=== PATIENT | female | born 1950 | race Caucasian/White ===

== ENCOUNTER 2024-12-22 15:14 | Outpatient (AMB) | payer MEDICARE, SELFPAY ==
--- OUTSIDE RECORDS SUMMARY | 2011-08-21 20:00 | XMS_ITS | Continuity of Care Document ---
Author Organization [facility] Address [address] [place] [address] Phone Care Team Providers Care Store Receiver Name Role Phone Elva Crooks MD Unavailable Unavailable Advance Directives Directive Yes / No Effective Date File Name No Information Encounters Encounter Description Practice Location Reason(s) For Visit Diagnoses Date Provider Providers Copied on Encounter [facility], [address], [place], [place], [id number], [place] tel:[phone] [facility] JOINT PAIN-SHLDER Valeriy Stevenson. [address], [place], [place], [id number], [place]. tel:[phone] Family History Family Member Type Diagnosis Age At Onset No Information Payers Payer name Insurance type Covered green party ID Authoriza tion(s) No Information Social History Type Description Quantity Date Captured Comments Sex Female Smoking Status No Information Chief Complaint And Reason For Visit No Information Reason For Referral Reason For Referral No Information History Of Present Illness Encounter Date Complaint History Of Prese nt Illness No Information Functional Status Date Functional Assessmen t No Information Instructions Date Instruction Additional Infor mation No Information Assessments Type Assessment Date No Information Patient Care Teams Name Effective Dates (start - stop) Status Members No Information
--- OUTSIDE RECORDS SUMMARY | 2024-05-12 09:45 | XMS_ITS | Continuity of Care Document ---
Author Organization [facility] Address [address] [place] [address] Phone Care Team Providers Care Health Program Manager Name Role Phone Chad Hoskins MD Unavailable [...] for the evaluation and management of an [facility], [address] [place] [address], [id number], tel:[phone] Justice VICTOR Joint Pain (chief complaint) Primary OA of handPain in unspecified jointSpinal enthesopathy, lumbar regionOther spondylosis, lumbar regionOther intervertebral disc disorders, lumbar regionSciatica, left side Feb-0 - 5 Ritter Bonilla. [address] [place] [address], [address], [id number] . tel: [phone] Referring Provider: Chad Khan, [address] [place] [address], [place], [address] . tel:[phone] Office or other outpatient visit for the evaluation and management of an [facility], [address] [place] [address], [id number], tel:[phone] Justice VICTOR Joint Pain (chief complaint) Primary OA of handPain in unspecified jointSpinal enthesopathy, lumbar regionOther spondylosis, lumbar regionOther intervertebral disc disorders, lumbar regionSciatica, left side Sep-1 3- 4 Ritter Bonilla. [address] [place] [address], [address], [id number] . tel: [phone] Referring Provider: Chad Khan, [address] [place] [address], [address] . tel:[phone] [facility], [address] [place] [address], [id number], tel:[phone] Justice VICTOR Joint Pain (chief complaint) Primary OA of handOther spondylosis, lumbar regionOther intervertebral disc disorders, lumbar regionOther spondylosis, cervical regionSpinal stenosis, cervical region Sep-0 4 4 Ritter Bonilla. [address] [place] [address], [address], [id number] . tel: [phone] [facility], [address] [place] [address], [id number], [place] tel:[phone] Justice VICTOR No Information Sep-0 4 Ritter Bonilla. [address] [place] [address], [id number] . tel: [phone] Referring Provider: Chad Khan, [address] [place] [address], [id number] . tel:[phone] Office or other outpatient visit for the evaluation and management of an [facility], [address] [place] [address], [id number], [place] tel:[phone] Justice VICTOR Joint Pain (chief complaint) Primary OA of handPain in unspecified jointSpinal enthesopathy, lumbar regionOther spondylosis, lumbar regionOther intervertebral disc disorders, lumbar regionSciatica, left sideLow back pain Feb-0 6202 3 Ritter Bonilla. [address] [place] [address], [id number] . tel: [phone] Referring Provider: Chad Khan, [address] [place] [address], [id number] . tel:[phone] Office or other outpatient visit for the evaluation and management of an [facility], [address] [place] [address], [id number], [place] tel:[phone] Justice VICTOR Joint Pain (chief complaint) Pain in unspecified jointPrimary OA of handSpinal enthesopathy, lumbar regionOther spondylosis, lumbar regionOther intervertebral disc disorders, lumbar regionSciatica, left sideLow back pain 2 Ritter Bonilla. [address] [place] [address], [address], [id number] . tel: [phone] Referring Provider: Chad Khan, [address] [place] [address], [address] . tel:[phone] [facility], [address] [place] [address], [id number], tel:[phone] Justice VICTOR No Information 2 Ritter Bonilla. [address] [place] [address], [address], [id number] . tel: [phone] Referring Provider: Chad Khan, [address] [place] [address], [id number] . tel:[phone] Office or other outpatient visit for the evaluation [facility] management [facility], [address] [place] [address], [id number], [place] tel:[phone] Justice VICTOR Joint Pain (chief complaint) Primary OA of handSpinal enthesopathy, lumbar regionOther spondylosis, lumbar regionOther intervertebral disc disorders, lumbar regionSciatica, left sideLow back painPain in unspecified joint 2 Ritter Bonilla. [address] [place] [address], [address], [id number] . tel: [phone] Referring Provider: Chad Khan, [address] [place] [address], [address] . tel:[phone] Office or other outpatient visit for the evaluation and management of an [facility], [address] [place] [address], [id number], [place] tel:[phone] Justice VICTOR Joint Pain (chief complaint) Spinal enthesopathy, lumbar regionOther spondylosis, lumbar regionOther intervertebral disc disorders, lumbar regionSciatica, left sidePrimary OA of handLow back pain 1 Ritter Bonilla. [address] [place] [address], [address], [id number] . tel: [phone] Referring Provider: Chad Khan, [address] [place] [address], [id number] . tel:[phone] Office or other outpatient visit [facility] the [facility], [address] [place] [address], [id number], tel:[phone] Justice VICTOR Joint Pain (chief complaint) Spinal stenosis, cervical regionRadiculopath y, cervical regionOther spondylosis, cervical regionOther spondylosis, lumbar region 1 Ritter Bonilla. [address] [place] [address], [id number] . tel: [phone] Referring Provider: Chad Khan, [address] [place] [address], [id number] . tel:[phone] [facility], [address] [place] [address], [id number], [place] tel:[phone] Justice VICTOR Joint Pain (chief complaint) Spinal stenosis, cervical regionRadiculopath y, cervical regionOther spondylosis, cervical regionOther spondylosis, lumbar region 1 Ritter Bonilla. [address] [place] [address], [address], [id number] . tel: [phone] [facility], [address] [place] [address], [id number], [place] tel:[phone] Justice VICTOR No Information 1 Ritter Bonilla. [address] [place] [address] Ave, [address] [place] [address], [id number] . tel: [phone] Referring Provider: Chad Khan, [address] [place] [address] Ave Suite [facility], [place], [address] . tel:[phone] Office or other outpatient visit for the evaluation [facility], [address] [place] [address] [facility] [address] [place] [address], [id number], [place] tel:[phone] Justice VICTOR Back pain (chief complaint) Other spondylosis, lumbar regionSpinal stenosis, cervical regionOther spondylosis, cervical region Dec-3 0 Ritter Bonilla. [address] [place] [address] Ave, [address] [place] [address], [id number] . tel: [phone] Referring Provider: Chad Khan, [address] [place] [address] Suite [facility], [place], [address] . tel:[phone] [facility], [address] [place], [place] [address]e [address] [place] [address], [id number], [place] tel:[phone] Justice VICTOR cervical stenosis (chief complaint) Spinal stenosis, cervical region 0 Ritter Bonilla. [address] [place] [address] Ave, [address] [place] [address], [id number] . tel: [phone] [facility], [address] [place], [place] [address]e [address] [place] [address], [id number], [place] tel:[phone] Justice VICTOR Left upper back and extremity pain. (chief complaint) Other spondylosis, cervical regionSpinal stenosis of cervical regionRadiculopath y, cervical region Feb- 0 Gilmar Cota. [address] [place] [address], [address], [place]. tel: [phone] Referring Provider: Cipriano Schafer, [address] [place] [address], [address]. tel:[phone] [facility], [address] [place] [address], [id number], tel:[phone] Justice VICTOR Left upper back and extremity pain. (chief complaint) Spinal stenosis of cervical regionRadiculopath y, cervical regionOther spondylosis, cervical region Oct-3 0 0 Ritter Bonilla. [address] [place] [address], [address] [place] [address], [id number] . tel: [phone] [facility], [address] [place] [address], [id number], [place] tel:[phone] Justice VICTOR Pain in unspecified joint 0 Ritter Bonilla. [address] [place] [address], [address], [id number] . tel: [phone] Referring Provider: Chad Khan, [address] [place] [address], [address] . tel:[phone] Office or other outpatient visit for the evaluation and [facility], [address] [place] [address], [id number], [place] tel:[phone] Justice VICTOR Back pain (chief complaint) Scoliosis, unspecifiedOther spondylosis, lumbar regionOther intervertebral disc disorders, lumbar regionRadiculopath y, cervical regionOther spondylosis of cervical region 0 Ritter Bonilla. [address] [place] [address], [address], [id number] . tel: [phone] Referring Provider: Chad Khan, [address] [place] [address], [id number] . tel:[phone] [facility], [address] [place] [address], [id number], [place] tel:[phone] Justice VICTOR No Information 0 Ritter Bonilla. [address] [place] [address], [id number] . tel: [phone] Referring Provider: Chad Khan, [address] [place] [address] Suite [facility], [place], [address] . tel:[phone] Office or other outpatient visit for the [facility], [address] [place] [address], [id number], tel:[phone] Justice VICTOR Back pain (chief complaint) Other spondylosis, lumbar regionOther intervertebral disc disorders, lumbar regionScoliosis, unspecifiedSpinal enthesopathy of lumbar regionSciatica of left side 0 Ritter Bonilla. [address] [place] [address], Suite [facility], [place], [place], [id number] . tel: [phone] Referring Provider: Chad Khan, [address] [place] [address], [place], [address] . tel:[phone] Office or other outpatient visit for the evaluation and management of [facility], [address] [place], [place] [address]e [address] [place] [address], [id number], [place] tel:[phone] Justice VICTOR Fatigue (chief complaint)J oint pain (chief complaint) Unilateral primary osteoarthritis, left hipOther spondylosis, lumbar region 0 Ritter Bonilla. [address] [place] [address], [address] [place] [address], [id number] . tel: [phone] Referring Provider: Chad Khan, [address] [place], [place] [address]e Suite [facility], [place], [address] . tel:[phone] Office or other outpatient visit for the evaluation and management [facility], [address] [place] [address], [id number], [place] tel:[phone] Justice VICTOR Hip Pain (chief complaint) Trochanteric bursitis, left hipPrimary osteoarthritis of left hip 9 Ritter Bonilla. [address] [place], [place] [address], [id number] . tel: [phone] Referring Provider: Chad Khan, [address] [place] [address], [id number] . tel:[phone] Office or other outpatient visit for the [facility], [address] [place] [address], [id number], [place] tel:[phone] Justice MELLO PA CBC ESR CRP CMP CCP rheumatoid factor (chief complaint)E TA ,HLA-B27 (chief complaint) SynovitisOther spondylosis, lumbar region Sep- 9 Ritter Bonilla. [address] [place] [address], [id number] . tel: [phone] Referring Provider: Chad Khan, [address] [place] [address], [address] . tel:[phone] [facility], [address] [place] [address], [id number], [place] tel:[phone] Justice VICTOR Trochanteric bursitis, left hip Sep- 9 Ritter Bonilla. [address] [place] [address], [id number] . tel: [phone] Referring Provider: Chad Khan, [address] [place] [address], [address] . tel:[phone] Office or other outpatient visit for the evaluation and management of an [facility], [address] [place] [address], [id number], [place] tel:[phone] Justice VICTOR Hip Pain (chief complaint) Trochanteric bursitis of left hipOther spondylosis, lumbar region 9 Ritter Bonilla. [address] [place] [address], [id number] . tel: [phone] Referring Provider: Chad Khan, [address] [place] [address], [place], [address] . tel:[phone] Office or other outpatient visit for the evaluation and management of a [facility], [address] [place], [place] [address]e [facility], [place], [place], [id number], tel:[phone] Justice VICTOR Back pain (chief complaint) Other spondylosis, lumbar regionOther intervertebral disc disorders, lumbar regionScoliosis 0 9 Ritter Bonilla. [address] [place] [address], [address], [place], [place], [id number] . tel: [phone] Referring Provider: Chad Khan, [address] [place] [address] Suite [facility], [place], [address] . tel:[phone] Family History Family Member Type Diagnosis Age At Onset Mother Problem (finding) osteoarthritis Father Problem (finding) osteoarthritis Father Problem (finding) Lower Back Pain Mother Problem (finding) alcoholism Payers Payer name Insurance type Covered republican ID Authoriza tion(s) Medicare [id number] [place] [employer] [id number] Social History Type Description Quantity Date Captured [...] Order [place] X-ray; Complete (3+ views) ([id number]), Ordered on: Ordered Future Order: Radiology Order Kn ee X-ray; Limited (3 views) ([id number]), Ordered on: Ordered Future Order: Radiology Order MR I Hip ([id number]), Ordered on: Ordered Future Order: Radiology Order Hi p Unilateral With Pelvis 2-3 View ([id number]), Ordered on: Ordered Future Order: Radiology Order [place] X-ray; Complete (3+ views) ([id number]), Ordered on: Ordered Future Order: Radiology Order [place] X-ray; Complete (3+ views) ([id number]), Ordered on: Ordered Future Order: Radiology Order Melita mbar Spine MRI WITHOUT Contrast ([id number]), Ordered on: Ordered Future Order: Radiology Order Ce rvical Spine MRI WITHOUT Contrast ([id number]), Ordered on: Ordered Future Order: Radiology Order Sh oulder X-ray; Complete (2+ views) ([id number]), Ordered on: Ordered Future Order: Radiology Order Ce rvical Spine X-ray (Complete, including oblique & flexion/extension, 6+views) ([id number]), Ordered on: Ordered Future Order: Radiology Order Melita mbar Spine MRI WITHOUT Contrast ([id number]), Ordered on: Ordered Future Order: Lab Order CBC (INC LUDES DIFF/PLT) ([id number]), Sent on: Sent Future Order: Radiology Order MR I Hip ([id number]), Ordered on: Ordered Future Order: Radiology Order Pe lvis X-ray (1 or 2 views) ([id number]), Ordered on: Ordered Future Order: Radiology Order Melita mbar Spine X-ray (including sacrum) (Complete, with oblique views) 4views ([id number]), Ordered on: Ordered History Of Present Illness [...]
[2024-12-22 15:16] VITALS: BP 132/80; PULSE 85; O2SAT 98; BMI 26.3
--- NOTE | 2024-12-22 15:16 | HO.NEPHOV_ITS ---
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: No Accompanied by: Spouse Allergies hydromorphone (From Dilaudid) Allergy (Unknown, Verified 12/22/24 15:19) Unknown morphine Allergy (Unknown, Verified 12/22/24 15:19) Unknown pentazocine (From Talwin) Allergy (Unknown, Verified 12/22/24 15:19) Unknown Medication List - Last Reconciled 12/22/24 by Timmy Shannon MD apixaban (Eliquis) 5 mg PO BID bupropion HCl XL 300 mg PO QAM diltiazem HCl 90 mg PO DAILY famotidine 20 mg PO DAILY mygjezbxxbz-vmvpbtdva-exyerwah 200-62.5-25 mcg (Trelegy Ellipta) 1 inh inhalation DAILY levothyroxine 88 mcg PO DAILY losartan 100 mg PO DAILY progesterone micronized 100 mg PO QAM zolpidem (Ambien) 10 mg PO BEDTIME HPI Comments Details: The patient is a 74-year-old women presenting with Hyponatremia Diagnosed with SIADH in 2021 after hospitalization for hyponatremia, sodium levels dropped to 120 mmol/L. Wellbutrin was initially suspected but later ruled out as the primary cause. Periodic sodium level drops have necessitated saline infusions. She is on NaCl tabs 1 gm QD Stays on PO fluid restriction of 32 Oz H/o COVID in the past History of hypothyroidism managed with levothyroxine, regularly monitored thyroid function. Hypertension managed with losartan, atrial fibrillation managed by abstaining from alcohol. In 2014, underwent lumpectomy and radiation for breast cancer, no current issues. Scheduled for sinus surgery due to allergic rhinitis. Medical History: - Syndrome of Inappropriate Antidiuretic Hormone Secretion (SIADH) diagnosed in 2021 - Hyponatremia with sodium levels dropping to 120 mmol/L - Hypothyroidism managed with levothyroxine - Hypertension managed with losartan - Atrial Fibrillation - Allergic Rhinitis - History of Breast Cancer, lumpectomy and radiation in 2014 Surgical History: - Lumpectomy and radiation therapy for breast cancer in 2014 Medications: - Wellbutrin - Levothyroxine 0.88 mg for hypothyroidism - Losartan for hypertension - Probiotics for digestive health - Mucinex for mucus relief - Salt tablets 1 g daily for hyponatremia Social History: - The patient is a retired program management professional. - She abstains from alcohol due to atrial fibrillation. - She has concerns about traveling due to health issues. Diagnostic Results: - Sodium level dropped to 120 mmol/L during hospitalization in 2021 - Thyroid function tests are normal under levothyroxine treatment - MRI of the brain was unrevealing [facility] Family History Mother Diabetes mellitus Hypertensive disorder Gout Dementia Father Hypertensive disorder Malignant neoplastic disease Brother Hypertensive disorder Review of Systems Const Denies fever(s) and Denies weight loss Card Denies chest pain Resp Denies cough and Denies hemoptysis GI Denies abdominal pain, Denies diarrhea and Denies nausea Musc Denies back pain Neuro Denies focal weakness Physical Exam Vital Signs: Last Vital Signs Pulse 85 12/22/24 15:16 BP 132/80 12/22/24 15:16 Pulse Ox 98 12/22/24 15:16 Oxygen Delivery Method Room Air 12/22/24 15:16 BMI result Body Mass Index 26.3 Assessment & Plan Assessment & Plan (1) Hyponatremia: Code(s): E87.1 - Hypo-osmolality and hyponatremia Category: Medical (2) CKD (chronic kidney disease) stage 2, GFR 60-89 ml/min: Code(s): N18.2 - Chronic kidney disease, stage 2 (mild) Category: Medical (3) HTN (hypertension): Code(s): I10 - Essential (primary) hypertension Category: Medical Plan 1. Syndrome Of Inappropriate Antidiuretic Hormone Secretion (Siadh) - Start urea powder 15 gm PO BID to maintain sodium levels above 135 mmol/L. - Stop salt tablets when starting urea powder. - Monitor sodium levels regularly and adjust treatment as needed. - Use Gatorade or similar electrolyte solutions / Liquid IV to prevent sodium drop. Monitor Electrolytes Q 1- 2 weeks Will repeat 24 hr urine collection for Volume and check urine /Serum Osm as well 2. Chronic Kidney Disease Mild , Age appropriate decline in eGFR - Regular monitoring of kidney function and fluid management to prevent dehydration. 4. Hypothyroidism - Continue levothyroxine and regular thyroid function tests. 5. Hypertension - Continue losartan and monitor blood pressure. 6. Atrial Fibrillation - Abstain from alcohol to manage atrial fibrillation. 7. History Of Breast Cancer - Regular follow-ups for breast cancer surveillance. Orders: Orders Basic Metabolic Panel Today E87.1 - Hypo-osmolality and hyponatremia Osmolality Urine Today E87.1 - Hypo-osmolality and hyponatremia Cortisol Random Today E87.1 - Hypo-osmolality and hyponatremia Electrolytes Today E87.1 - Hypo-osmolality and hyponatremia Sodium Urine Random Today E87.1 - Hypo-osmolality and hyponatremia Osmolality, Serum Today E87.1 - Hypo-osmolality and hyponatremia Thyroid Stimulating Hormone Today E87.1 - Hypo-osmolality and hyponatremia Creatinine, 24 Hr Group Today E87.1 - Hypo-osmolality and hyponatremia Blood Urea Nitrogen Today E87.1 - Hypo-osmolality and hyponatremia Medications: New urea (Ure-Na) 1 packet PO BID 8 ea 6RF Coding Level of Care Code New Pt Level 5 (80829) Diagnoses Hyponatremia E87.1 CKD (chronic kidney disease) stage 2, GFR 60-89 ml/min N18.2 HTN (hypertension) I10 Time Spent (min) 50
--- OUTSIDE RECORDS SUMMARY | 2024-12-22 18:43 | XMS_ITS | Clinical Summary ---
Author Organization [facility] Facility Address [address] [facility] [address] [place] [address] Care Team Providers Care Personnel Coordinator Name Role Phone Unavailable Primary Care Provider Unavailabl e Social History Tobacco Use Types Packs/Day Years Used Date Smoking Tobacco: Never Assessed Comments Unknown Sex and Gender Information Value Date Recorded Sex Assigned at Not on file Legal Sex Female 12:13 AM EDT Gender Identity Not on file Sexual Orientation Not on file Plan of Treatment Upcoming Encounters Date Type Department Care Team (Late st Contact Info) Description 02/16/2025 12:15 PM EST Office Visit [facility] [address] [id number] Jason Romero MD [address] [address] Health Maintenance Due Date Last Done Comments Breast Cancer Screening 1950 Pneumococcal Vaccine: 50+ Years (1 of 2 - PCV) 10/27/1970 Colorectal Cancer Screening: Annual FOBT 10/27/2000 Colorectal Cancer Screening: Colonoscopy 10/27/2000 Colorectal Cancer Screening: Sigmoidoscopy 10/27/2000 Influenza Vaccine (#1) 2024 7, 12/26/2015 Hepatitis B Vaccine Aged Out No longe r eligible based on patient's age to complete this topic
== END 2024-12-22 16:06 | disposition home or self-care (01) ==
LOC: HO.HKA 15:15
PROVIDERS: Visit Provider Internal Medicine Hypertension Specialist
DX: E87.1 Hypo-osmolality and hyponatremia (principal); I12.9 Hypertensive chronic kidney disease with stage 1 through stage 4 chronic kidney disease, or unspecified chronic kidney disease; N18.2 Chronic kidney disease, stage 2 (mild)
CPT/HCPCS: 99204

== ENCOUNTER → 2024-12-22 15:14 | Outpatient (BNVA) | payer MEDICARE, SELFPAY | PROVIDERS: Visit Provider Internal Medicine Hypertension Specialist | DX: E87.1 Hypo-osmolality and hyponatremia (principal); N18.2 Chronic kidney disease, stage 2 (mild); I10 Essential (primary) hypertension; E03.9 Hypothyroidism, unspecified; I48.91 Unspecified atrial fibrillation; Z85.3 Personal history of malignant neoplasm of breast | CPT/HCPCS: 99202 ==

== ENCOUNTER 2025-01-12 13:09 | Outpatient (AMB) | payer MEDICARE, SELFPAY ==
--- OUTSIDE RECORDS SUMMARY | 2024-05-12 09:45 | XMS_ITS | Continuity of Care Document ---
Author Organization [facility] Address [address] [place] [address] Phone Care Team Providers Care Tank Storage Supervisor Name Role Phone Chad Hoskins MD Unavailable Unavailable Allergies, Adverse Reactions, Alerts Substance Reaction Status Criticality No Known Allergies Active No Inform ation Medications Medication Instructions Dosage Effective Dates (start - stop) Status Comments Synthroid 125 mcg tablet take 1 tablet by oral route every day 125 MCG - Active Crestor 20 mg tablet take 1 tablet by oral route every day 20 MG - Active Ambien 5 mg tablet take 1 tablet by oral route every day at bedtime 5 MG - Active losartan 100 mg tablet take 1 tablet by oral route every day 100 MG - Active Wellbutrin XL 300 mg 24 hr tablet, extended release take 1 tablet by oral route every day 300 MG - Active DILTIAZEM 24HR ER (XR) (unknown strength) take 1 capsule by oral route every day Not Available - Active Procedures Procedure Date Office or other outpatient v isit for the evaluation and management of an establi Hand X-ray, Complete 3 Views Hand X-ray, Complete 3 Views Office or other outpatient v isit for the evaluation and management of an establi Office Visit Remote Video Office or other outpatient v isit for the evaluation and management of an establi Knee X-ray, AP & Lateral 3 Views 2021 Knee X-ray, AP & Lateral 3 Views 2021 Office or other outpatient v isit for the evaluation and management of an establi MRI, any joint of lower extremity (Knee, Ankle, Hip); without contrast Hip Unilateral Complete 2 or 3 views Sep Office or other outpatient v isit for the evaluation and management of an establi Hand X-ray, Complete 3 Views Hand X-ray, Complete 3 Views Injection(s); single tendon origin/inser tion Injection, anesthetic agent; sciatic ner ve, single Injection, triamcinolone acetonide, not otherwise specified, 10 mg Office or other outpatient v isit for the evaluation and management of an establi Office or other outpatient v isit for the evaluation and management of an establi Office Visit Remote Video Office or other outpatient v isit for the evaluation and management of an establi Office Visit Remote Video MRI, spinal canal and contents, Cervical , Without Contrast Cervical Spine X-ray, Complete 6 Views O Shoulder X-ray, Complete 2 Views 2019 Office or other outpatient v isit for the evaluation and management of an establi MRI, spinal canal and contents, Lumbar, Without Contrast Injection, anesthetic agent; sciatic ner ve, single Injection(s); single tendon origin/inser tion Injection, triamcinolone acetonide, not otherwise specified, 10 mg Office or other outpatient v isit for the evaluation and management of an establi Office or other outpatient v isit for the evaluation and management of an establi Office or other outpatient v isit for the evaluation and management of an establi Collection of venous blood by ruby gonzalez Office or other outpatient v isit for the evaluation and management of an establi MRI JNT OF LWR EXTRE W/O DYE Arthrocentesis, aspiration a nd/or injection; major joint or bursa (eg, shoulder, Injection, triamcinolone acetonide, not otherwise specified, 10 mg Office or other outpatient v isit for the evaluation and management of an establi Pelvis X-ray, AP LTD 1 View Lumbosacral Spine X-ray, Complete 4 View s Office or other outpatient v isit for the evaluation and management of a new robert Advance Directives Directive Yes / No Effective Date File Name No Information Encounters Encounter Description Practice Location Reason(s) For Visit Diagnoses Date Provider Providers Copied on Encounter Office or other outpatient visit for the evaluation and management of an [facility], [address] [place] [address], [id number], tel:[phone] Justice VICTOR Joint Pain (chief complaint) Primary OA of handPain in unspecified jointSpinal enthesopathy, lumbar regionOther spondylosis, lumbar regionOther intervertebral disc disorders, lumbar regionSciatica, left side Feb-0 - 5 Ritter Bonilla. [address] [place] [address], [address], [id number] . tel: [phone] Referring Provider: Chad Khan, [address] [place] [address], [place], [address] . tel:[phone] Office or other outpatient visit for the evaluation and management of an [facility], [address] [place] [address], [id number], tel:[phone] Justice VICTOR Joint Pain (chief complaint) Primary OA of handPain in unspecified jointSpinal enthesopathy, lumbar regionOther spondylosis, lumbar regionOther intervertebral disc disorders, lumbar regionSciatica, left side Sep-1 3- 4 Ritter Bonilla. [address] [place] [address], [address], [id number] . tel: [phone] Referring Provider: Chad Khan, [address] [place] [address], [address] . tel:[phone] [facility], [address] [place] [address], [id number], tel:[phone] Justice VICTOR Joint Pain (chief complaint) Primary OA of handOther spondylosis, lumbar regionOther intervertebral disc disorders, lumbar regionOther spondylosis, cervical regionSpinal stenosis, cervical region Sep-0 4 4 Ritter Bonilla. [address] [place] [address], [address], [id number] . tel: [phone] [facility], [address] [place] [address], [id number], [place] tel:[phone] Justice VICTOR No Information Sep-0 4 Ritter Bonilla. [address] [place] [address], [id number] . tel: [phone] Referring Provider: Chad Khan, [address] [place] [address], [address] . tel:[phone] Office or other outpatient visit for the evaluation and management of an [facility], [address] [place] [address], [id number], [place] tel:[phone] Justice VICTOR Joint Pain (chief complaint) Primary OA of handPain in unspecified jointSpinal enthesopathy, lumbar regionOther spondylosis, lumbar regionOther intervertebral disc disorders, lumbar regionSciatica, left sideLow back pain Feb-0 6202 3 Ritter Bonilla. [address] [place] [address], [id number] . tel: [phone] Referring Provider: Chad Khan, [address] [place] [address], [address] . tel:[phone] Office or other outpatient visit for the evaluation and management of an [facility], [address] [place] [address], [id number], [place] tel:[phone] Justice VICTOR Joint Pain (chief complaint) Pain in unspecified jointPrimary OA of handSpinal enthesopathy, lumbar regionOther spondylosis, lumbar regionOther intervertebral disc disorders, lumbar regionSciatica, left sideLow back pain 2 Ritter Bonilla. [address] [place] [address], [address], [id number] . tel: [phone] Referring Provider: Chad Khan, [address] [place] [address], [address] . tel:[phone] [facility], [address] [place] [address], [id number], tel:[phone] Justice VICTOR No Information 2 Ritter Bonilla. [address] [place] [address], [address], [id number] . tel: [phone] Referring Provider: Chad Khan, [address] [place] [address], [address] . tel:[phone] Office or other outpatient visit for the evaluation and management of an [facility], [address] [place] [address], [id number], [place] tel:[phone] Justice VICTOR Joint Pain (chief complaint) Primary OA of handSpinal enthesopathy, lumbar regionOther spondylosis, lumbar regionOther intervertebral disc disorders, lumbar regionSciatica, left sideLow back painPain in unspecified joint 2 Ritter Bonilla. [address] [place] [address], [address], [id number] . tel: [phone] Referring Provider: Chad Khan, [address] [place] [address], [address] . tel:[phone] Office or other outpatient visit for the evaluation and management of an [facility], [address] [place] [address], [id number], [place] tel:[phone] Justice VICTOR Joint Pain (chief complaint) Spinal enthesopathy, lumbar regionOther spondylosis, lumbar regionOther intervertebral disc disorders, lumbar regionSciatica, left sidePrimary OA of handLow back pain 1 Ritter Bonilla. [address] [place] [address], [address], [id number] . tel: [phone] Referring Provider: Chad Khan, [address] [place] [address], [address] . tel:[phone] Office or other outpatient visit for the evaluation [facility], [address] [place] [address], [id number], tel:[phone] Justice VICTOR Joint Pain (chief complaint) Spinal stenosis, cervical regionRadiculopath y, cervical regionOther spondylosis, cervical regionOther spondylosis, lumbar region 1 Ritter Bonilla. [address] [place] [address], [id number] . tel: [phone] Referring Provider: Chad Khan, [address] [place] [address], [address] . tel:[phone] [facility], [address] [place] [address], [id number], [place] tel:[phone] Justice VICTOR Joint Pain (chief complaint) Spinal stenosis, cervical regionRadiculopath y, cervical regionOther spondylosis, cervical regionOther spondylosis, lumbar region 1 Ritter Bonilla. [address] [place] [address], [address], [id number] . tel: [phone] [facility], [address] [place] [address], [id number], [place] tel:[phone] Justice VICTOR No Information 1 Ritter Bonilla. [address] [place] [address] Ave, [address] [place] [address], [id number] . tel: [phone] Referring Provider: Chad Khan, [address] [place] [address] Ave Suite [facility], [place], [address] . tel:[phone] Office or other outpatient visit for the evaluation and management of an [facility], [address] [place] [address] [facility] [address] [place] [address], [id number], [place] tel:[phone] Justice VICTOR Back pain (chief complaint) Other spondylosis, lumbar regionSpinal stenosis, cervical regionOther spondylosis, cervical region Dec-3 0 Ritter Bonilla. [address] [place] [address] Ave, [address] [place] [address], [id number] . tel: [phone] Referring Provider: Chad Khan, [address] [place] [address] Suite [facility], [place], [address] . tel:[phone] [facility], [address] [place], [place] [address]e [address] [place] [address], [id number], [place] tel:[phone] Justice VICTOR cervical stenosis (chief complaint) Spinal stenosis, cervical region 0 Ritter Bonilla. [address] [place] [address] Ave, [address] [place] [address], [id number] . tel: [phone] [facility], [address] [place], [place] [address]e [address] [place] [address], [id number], [place] tel:[phone] Justice VICTOR Left upper back and extremity pain. (chief complaint) Other spondylosis, cervical regionSpinal stenosis of cervical regionRadiculopath y, cervical region Feb- 0 Gilmar Cota. [address] [place] [address], [address], [place]. tel: [phone] Referring Provider: Cipriano Schafer, [address] [place] [address], [address]. tel:[phone] [facility], [address] [place] [address], [id number], tel:[phone] Justice VICTOR Left upper back and extremity pain. (chief complaint) Spinal stenosis of cervical regionRadiculopath y, cervical regionOther spondylosis, cervical region Oct-3 0 0 Ritter Bonilla. [address] [place] [address], [address] [place] [address], [id number] . tel: [phone] [facility], [address] [place] [address], [id number], [place] tel:[phone] Justice VICTOR Pain in unspecified joint 0 Ritter Bonilla. [address] [place] [address], [address], [id number] . tel: [phone] Referring Provider: Chad Khan, [address] [place] [address], [address] . tel:[phone] Office or other outpatient visit for the evaluation and management of an [facility], [address] [place] [address], [id number], [place] tel:[phone] Justice VICTOR Back pain (chief complaint) Scoliosis, unspecifiedOther spondylosis, lumbar regionOther intervertebral disc disorders, lumbar regionRadiculopath y, cervical regionOther spondylosis of cervical region 0 Ritter Bonilla. [address] [place] [address], [address], [id number] . tel: [phone] Referring Provider: Chad Khan, [address] [place] [address], [address] . tel:[phone] [facility], [address] [place] [id number], [place] tel:[phone] Justice VICTOR No Information 0 Ritter Bonilla. [address] [place] [address], [id number] . tel: [phone] Referring Provider: Chad Khan, [address] [place] [address] [address] [facility], [place], [address] . tel:[phone] Office or other outpatient visit for the evaluation and management of an [facility], [address] [place] [address], [id number], tel:[phone] Justice VICTOR Back pain (chief complaint) Other spondylosis, lumbar regionOther intervertebral disc disorders, lumbar regionScoliosis, unspecifiedSpinal enthesopathy of lumbar regionSciatica of left side 0 Ritter Bonilla. [address] [place] [address], Suite [facility], [place], [place], [id number] . tel: [phone] Referring Provider: Chad Khan, [address] [place] [address], [place], [address] . tel:[phone] Office or other outpatient visit for the evaluation and management of an [facility], [address] [place], [place] [address]e [address] [place] [address], [id number], [place] tel:[phone] Justice VICTOR Fatigue (chief complaint)J oint pain (chief complaint) Unilateral primary osteoarthritis, left hipOther spondylosis, lumbar region 0 Ritter Bonilla. [address] [place] [address], [address] [place] [address], [id number] . tel: [phone] Referring Provider: Chad Khan, [address] [place], [place] [address] Suite [facility], [place], [address] . tel:[phone] Office or other outpatient visit for the evaluation and management of an [facility], [address] [place] [address], [id number], [place] tel:[phone] Justice VICTOR Hip Pain (chief complaint) Trochanteric bursitis, left hipPrimary osteoarthritis of left hip 9 Ritter Bonilla. [address] [place], [place] [address], [id number] . tel: [phone] Referring Provider: Chad Khan, [address] [place] [address], [address] . tel:[phone] Office or other outpatient visit for the evaluation and management of an [facility], [address] [place] [address], [id number], [place] tel:[phone] Justice MELLO PA CBC ESR CRP CMP CCP rheumatoid factor (chief complaint)E TA ,[id number] (chief complaint) SynovitisOther spondylosis, lumbar region Sep- 9 Ritter Bonilla. [address] [place] [address], [id number] . tel: [phone] Referring Provider: Chad Khan, [address] [place] [address], [address] . tel:[phone] [facility], [address] [place] [address], [id number], [place] tel:[phone] Justice VICTOR Trochanteric bursitis, left hip Sep- 9 Ritter Bonilla. [address] [place] [address], [id number] . tel: [phone] Referring Provider: Chad Khan, [address] [place] [address], [address] . tel:[phone] Office or other outpatient visit for the evaluation and management of an [facility], [address] [place] [address], [id number], [place] tel:[phone] Justice VICTOR Hip Pain (chief complaint) Trochanteric bursitis of left hipOther spondylosis, lumbar region 9 Ritter Bonilla. [address] [place] [address], [id number] . tel: [phone] Referring Provider: Chad Khan, [address] [place] [address], [place], [address] . tel:[phone] Office or other outpatient visit for the evaluation and management of a [facility], [address] [place], [place] [address]e [facility], [place], [place], [id number], tel:[phone] Justice VICTOR Back pain (chief complaint) Other spondylosis, lumbar regionOther intervertebral disc disorders, lumbar regionScoliosis 0 9 Ritter Bonilla. [address] [place] [address], [address], [place], [place], [id number] . tel: [phone] Referring Provider: Chad Khan, [address] [place] [address] [address] [facility], [place], [address] . tel:[phone] Family History Family Member Type Diagnosis Age At Onset Mother Problem (finding) osteoarthritis Father Problem (finding) osteoarthritis Father Problem (finding) Lower Back Pain Mother Problem (finding) alcoholism Payers Payer name Insurance type Covered democrat ID Authoriza tion(s) Medicare [id number] [place] Insurance [id number] Social History Type Description Quantity Date Captured Comments Alcohol Use Details Unknown Caffeine Use Details Unknown Tobacco Use Status No Information Smoking Status No Information Sex Female Chief Complaint And Reason For Visit From encounter dated '05/12/2024 13:45'. Joint Pain (chief complaint) Reason For Referral Reason For Referral No Information Plan Of Treatment Date Type Action Status Future Order: Radiology Order Myers nd X-ray; Complete (3+ views) ([id number]), Ordered on: Ordered Future Order: Radiology Order Kn ee X-ray; Limited (3 views) ([id number]), Ordered on: Ordered Future Order: Radiology Order MR I Hip ([id number]), Ordered on: Ordered Future Order: Radiology Order Hi p Unilateral With Pelvis 2-3 View ([id number]), Ordered on: Ordered Future Order: Radiology Order [place] [address] X-ray; Complete (3+ views) ([id number]), Ordered on: Ordered Future Order: Radiology Order [place] [address] X-ray; Complete (3+ views) ([id number]), Ordered on: Ordered Future Order: Radiology Order Melita mbar Spine MRI WITHOUT Contrast ([id number]), Ordered on: Ordered Future Order: Radiology Order Ce rvical Spine MRI WITHOUT Contrast ([id number]), Ordered on: Ordered Future Order: Radiology Order Sh oulder X-ray; Complete (2+ views) ([id number]), Ordered on: Ordered Future Order: Radiology Order Ce rvical Spine X-ray (Complete, including oblique & flexion/extension, 6+views) ([id number]), Ordered on: Ordered Future Order: Radiology Order Melita mbar Spine MRI WITHOUT Contrast ([id number]), Ordered on: Ordered Future Order: Lab Order CBC (INC LUDES DIFF/PLT) ([id number]), Sent on: Sent Future Order: Radiology Order MR I Hip ([id number]), Ordered on: Ordered Future Order: Radiology Order Pe lvis X-ray (1 or 2 views) ([id number]), Ordered on: Ordered Future Order: Radiology Order Melita mbar Spine X-ray (including sacrum) (Complete, with oblique views) 4views ([id number]), Ordered on: Ordered History Of Present Illness Encounter Date Complaint History Of Prese nt Illness Joint Pain Joint Pain Joint Pain Joint Pain Joint Pain Joint Pain Joint Pain Joint Pain Joint Pain Back pain cervical stenosis Left upper back and extremity pa in. Left upper back and extremity pa in. Back pain Back pain Fatigue Joint pain Hip Pain CBC ESR CRP CMP CCP rheumatoid f actor ETA ,HLA-[id number] Hip Pain Back pain Functional Status Date Functional Assessmen t No Information Instructions Date Instruction Additional Infor mation No Information Assessments Type Assessment Date assessment Primary OA of hand assessment Pain in unspecified joint assessment Spinal enthesopathy, lumbar edward on assessment Other spondylosis, lumbar region assessment Other intervertebral disc disord ers, lumbar region assessment Sciatica, left side Patient Care Teams Name Effective Dates (start - stop) Status Members No Information
[2025-01-12 13:15] VITALS: BP 122/66; PULSE 71; O2SAT 97; BMI 26.4
--- NOTE | 2025-01-12 13:15 | HO.NEPHOV_ITS ---
Vital Signs 01/12/25 13:15 Height 5 ft 4 in Weight 154 lb BMI 26.4 BP 122/66 Blood Pressure Location Lt brachial Position Sitting Pulse 71 Pulse Source Pulse Oximeter Pulse Oximetry (%) 97 Oxygen Delivery Method Room Air Intake Visit Reasons: 1mon f/u w/labs [employer] Machine Operator Required: No Accompanied by: Spouse Allergies hydromorphone (From Dilaudid) Allergy (Unknown, Verified 01/12/25 13:17) Unknown morphine Allergy (Unknown, Verified 01/12/25 13:17) Unknown pentazocine (From Talwin) Allergy (Unknown, Verified 01/12/25 13:17) Unknown Medication List - Last Reconciled 01/12/25 by Timmy Shannon MD apixaban (Eliquis) 5 mg PO BID bupropion HCl XL 300 mg PO QAM diltiazem HCl 90 mg PO DAILY famotidine 20 mg PO DAILY jjulaqyjqvi-yzdleajpm-royazson 200-62.5-25 mcg (Trelegy Ellipta) 1 inh inhalation DAILY levothyroxine 88 mcg PO DAILY losartan 100 mg PO DAILY progesterone micronized 100 mg PO QAM urea (Ure-Na) 1 packet PO DAILY zolpidem (Ambien) 10 mg PO BEDTIME HPI Comments Details: The patient is a 74-year-old women presenting with Hyponatremia Diagnosed with SIADH in 2021 after hospitalization for hyponatremia, sodium levels dropped to 120 mmol/L. Wellbutrin was initially suspected but later ruled out as the primary cause. Periodic sodium level drops have necessitated saline infusions. She is on NaCl tabs 1 gm QD Stays on PO fluid restriction of 32 Oz H/o COVID in the past History of hypothyroidism managed with levothyroxine, regularly monitored thyroid function. Hypertension managed with losartan, atrial fibrillation managed by abstaining from alcohol. In 2014, underwent lumpectomy and radiation for breast cancer, no current issues. Scheduled for sinus surgery due to allergic rhinitis. Medical History: - Syndrome of Inappropriate Antidiuretic Hormone Secretion (SIADH) diagnosed in 2021 - Hyponatremia with sodium levels dropping to 120 mmol/L - Hypothyroidism managed with levothyroxine - Hypertension managed with losartan - Atrial Fibrillation - Allergic Rhinitis - History of Breast Cancer, lumpectomy and radiation in 2014 Surgical History: - Lumpectomy and radiation therapy for breast cancer in 2014 Medications: - Wellbutrin - Levothyroxine 0.88 mg for hypothyroidism - Losartan for hypertension - Probiotics for digestive health - Mucinex for mucus relief - Salt tablets 1 g daily for hyponatremia Social History: - The patient is a retired digital account manager. - She abstains from alcohol due to atrial fibrillation. - She has concerns about traveling due to health issues. Diagnostic Results: - Sodium level dropped to 120 mmol/L during hospitalization in 2021 - Thyroid function tests are normal under levothyroxine treatment - MRI of the brain was unrevealing 01/12/25 - The patient is a 74-year-old female presenting with hyponatremia Stopped NaCL tabs Tried Ken BID and now at QD. Takes it with Mylanta to combat heartburn. Also on Protonix - Hyponatremia managed with urea powder; facial swelling reduced after stopping salt tablets. Recent Na 136 PFSH Family History Mother Diabetes mellitus Hypertensive disorder Gout Dementia Father Hypertensive disorder Malignant neoplastic disease Brother Hypertensive disorder Physical Exam Vital Signs: Last Vital Signs Pulse 71 01/12/25 13:15 BP 122/66 01/12/25 13:15 Pulse Ox 97 01/12/25 13:15 Oxygen Delivery Method Room Air 01/12/25 13:15 BMI result Body Mass Index 26.4 Comfortable Neck supple no JVD. Lungs entry equal no rales. Heart S1-S2 heard no gallop or rub. Abdomen soft nontender. Neuro alert awake oriented. No asterixis. Extremities no edema. Results Reviewed Results Reviewed: 01/05/26 Na 136 24 hr urine Volume 2250 ml Cr Cl 86 ml/ mt . Assessment & Plan Assessment & Plan (1) Hyponatremia: Code(s): E87.1 - Hypo-osmolality and hyponatremia Category: Medical (2) CKD (chronic kidney disease) stage 2, GFR 60-89 ml/min: Code(s): N18.2 - Chronic kidney disease, stage 2 (mild) Category: Medical (3) HTN (hypertension): Code(s): I10 - Essential (primary) hypertension Category: Medical Plan 1. Syndrome Of Inappropriate Antidiuretic Hormone Secretion (Siadh) - Start urea powder 15 gm PO BID to maintain sodium levels above 135 mmol/L. - Stop salt tablets when starting urea powder. - Monitor sodium levels regularly and adjust treatment as needed. - Use Gatorade or similar electrolyte solutions / Liquid IV to prevent sodium drop. Monitor Electrolytes Q 1- 2 weeks Will repeat 24 hr urine collection for Volume and check urine /Serum Osm as well 2. Chronic Kidney Disease Mild , Age appropriate decline in eGFR - Regular monitoring of kidney function and fluid management to prevent dehydration. 4. Hypothyroidism - Continue levothyroxine and regular thyroid function tests. 5. Hypertension - Continue losartan and monitor blood pressure. 6. Atrial Fibrillation - Abstain from alcohol to manage atrial fibrillation. 7. History Of Breast Cancer - Regular follow-ups for breast cancer surveillance. 01/12/25 Na stands corrected Keep on Ken 1 packet QD Watch Na levels and increase dose if needed 24 hr urine shows volume to 2250 ml and Cr Cl of 86 ml/mt - Normal for her age No changes made today Monitor pNa levels PRN If Na< 132, would increase Ken to 2 packs a day She will spend the winter in and return to office in August Medications: Changed From urea (Ure-Na) 1 packet PO BID 8 ea 6RF To urea (Ure-Na) 1 packet PO DAILY Coding Level of Care Code Est Pt Level 4 (03443) Diagnoses Hyponatremia E87.1 CKD (chronic kidney disease) stage 2, GFR 60-89 ml/min N18.2 HTN (hypertension) I10
--- OUTSIDE RECORDS SUMMARY | 2025-01-12 16:06 | XMS_ITS | Clinical Summary ---
Author Organization [facility] Facility Address [address] [facility] [address] [place] [address] Care Team Providers Care Route Agent Name Role Phone Unavailable Primary Care Provider [...] Description 02/16/2025 12:15 PM EST Office Visit [facility] [address] [phone] Jason Romero MD [address] [phone] Health Maintenance Due Date Last Done Comments [...]
== END 2025-01-12 13:32 | disposition home or self-care (01) ==
LOC: HO.HKA 13:09
PROVIDERS: Visit Provider Internal Medicine Hypertension Specialist
DX: E87.1 Hypo-osmolality and hyponatremia (principal); I12.9 Hypertensive chronic kidney disease with stage 1 through stage 4 chronic kidney disease, or unspecified chronic kidney disease; N18.2 Chronic kidney disease, stage 2 (mild)
CPT/HCPCS: 99214

== ENCOUNTER → 2025-01-12 13:09 | Outpatient (BNVA) | payer MEDICARE, SELFPAY | PROVIDERS: Visit Provider Internal Medicine Hypertension Specialist | DX: E87.1 Hypo-osmolality and hyponatremia (principal); I12.9 Hypertensive chronic kidney disease with stage 1 through stage 4 chronic kidney disease, or unspecified chronic kidney disease; N18.2 Chronic kidney disease, stage 2 (mild); Z85.3 Personal history of malignant neoplasm of breast; I48.91 Unspecified atrial fibrillation | CPT/HCPCS: 99212 ==